=== PATIENT | female | born 1975 | race Caucasian/White ===

== ENCOUNTER → 2020-06-19 | Outpatient (CLI) | payer MEDICAID | END | disposition home or self-care (01) | LOC: CFH 12:24 | PROVIDERS: ATTEND Family Medicine | DX: R92.8 Other abnormal and inconclusive findings on diagnostic imaging of breast (principal) | CPT/HCPCS: 77065; G0279 ==

== ENCOUNTER → 2021-01-06 | Outpatient (CLI) | payer MEDICAID ==
[~2021-01-06] MED LIST: CYCL5TAB PO; DICL100G29 TD; HYDR25TA6 PO; MELO7.5T31 PO; POTA10TA31 PO
[2021-01-06 09:08] LABS: BASOPHILS % (AUTO) 1 % (0-1); EOSINOPHILS % (AUTO) 2 % (1-7); LYMPHOCYTES % (AUTO) 23 % (22-44); MEAN CORPUSCULAR HGB CONC 33.4 g/dL (32.4-35.8); MEAN PLATELET VOLUME 9.2 fL (7.4-10.4); MONOCYTES % (AUTO) 6 % (2-9); NEUTROPHILS % (AUTO) 69 % (42-75); PLATELET COUNT 337 x10^3/uL (130-400); RED BLOOD COUNT 4.98 x10^6/uL (3.82-5.3)
[2021-01-06 09:09] LABS: MD NO
[2021-01-06 09:18] LABS: CHLORIDE 98 mmol/L (98-107)
[2021-01-06 09:26] LABS: ALANINE AMINOTRANSFERASE 29 U/L (12-78); ALBUMIN 3.7 g/dL (3.4-5.0); ALKALINE PHOSPHATASE 80 U/L (45-117); ANION GAP 3 mmol/L (5-15); BILIRUBIN,TOTAL 0.4 mg/dL (0.2-1.0); CALCIUM 8.9 mg/dL (8.5-10.1); CREATININE 0.75 mg/dL (0.55-1.02); TOTAL PROTEIN 8.3 g/dL (6.4-8.2)
[2021-01-06 09:29] LABS: HCT (SEDRATE) 43.5 % (34.6-47.8)
[2021-01-06 09:45] LABS: INTERNATIONAL NORMALIZED RATIO 0.93 (0.93-1.1)
== END | disposition home or self-care (01) ==
LOC: STAR 07:33
PROVIDERS: ATTEND Orthopaedic Surgery Orthopaedic Surgery of the Spine
DX: Z01.812 Encounter for preprocedural laboratory examination (principal); Z20.822 Contact with and (suspected) exposure to COVID-19; M16.12 Unilateral primary osteoarthritis, left hip
CPT/HCPCS: 36415; 71046; 80053; 83036; 85025; 85610; 85651; 85730; 87081; 93005; U0003; U0005

== ENCOUNTER 2021-01-09 09:49 | Outpatient (CLI) | payer MEDICAID | END 2021-01-09 23:59 | disposition home or self-care (01) | LOC: STAR 09:49 | PROVIDERS: ATTEND Orthopaedic Surgery Orthopaedic Surgery of the Spine | DX: Z02.9 Encounter for administrative examinations, unspecified (principal) ==

== ENCOUNTER 2021-01-10 12:31 | Inpatient (IN) | payer MEDICAID ==
[2021-01-09 10:30] LABS: ANION GAP 5 mmol/L (5-15); CALCIUM 8.8 mg/dL (8.5-10.1); CHLORIDE 102 mmol/L (98-107); CREATININE 0.66 mg/dL (0.55-1.02)
[~2021-01-10] VITALS: Ht 167.6 cm; Wt 102.7 kg
[2021-01-10] MEDS ORDERED: LACTATED RINGERS 1,000 ML IV SCH (13:00)
[2021-01-10] MEDS ORDERED: VANCOMYCIN 2,000 MG in SODIUM CHLORIDE 0.9% 500 ML IV ONE (13:00)
[2021-01-10] MEDS ORDERED: CHLORHEXIDINE 15 ML UDC PO ONE (13:00)
[2021-01-10 13:10] LABS: HCG UR SG 1.028 (1.003-1.030)
[2021-01-10] MEDS ORDERED: VANCOMYCIN PMX 1GM/200ML 200 ML IV ONE (13:30)
[2021-01-10] MEDS ORDERED: VANCOMYCIN 1,000 MG in SODIUM CHLORIDE 0.9% 250 ML IV ONE (13:30)
[2021-01-10] MEDS ORDERED: HALOPERIDOL 5 MG/ML IV PRN (15:00)
[2021-01-10] MEDS ORDERED: hydrALAzine 20 MG/ML, 1ML IV PRN (15:00)
[2021-01-10] MEDS ORDERED: DIPHENHYDRAMINE 50 MG/ML, 1ML IVPush PRN ×2 (15:00→18:30)
[2021-01-10] MEDS ORDERED: MEPERIDINE/PF 25MG/0.5ML IVPush PRN (15:00)
[2021-01-10] MEDS ORDERED: LABETALOL 5MG/ML, 20ML IV PRN (15:00)
[2021-01-10] MEDS ORDERED: PROMETHAZINE 25 MG/ML, 1ML IVPush PRN (15:00)
[2021-01-10] MEDS ORDERED: ACETAMINOPHEN 325 MG TABLET PO PRN (15:00)
[2021-01-10] MEDS ORDERED: OXYcodone 5 MG/5 ML ORAL.SOL UDC PO PRN (15:00)
[2021-01-10] MEDS ORDERED: MIDAZOLAM 1 MG/ML, 2ML ONE (15:01)
[2021-01-10] MEDS ORDERED: FENTANYL PF 250 MCG/5ML ONE ×2 (15:02→16:57)
[2021-01-10] MEDS ORDERED: TRANEXAMIC ACID 100 MG/ML, 10ML ONE ×2 (15:33)
[2021-01-10] MEDS ORDERED: EPINEPHRINE 1 MG/ML, 1ML ONE (15:33)
[2021-01-10] MEDS ORDERED: VANCOMYCIN 1,000 MG ONE (15:33)
[2021-01-10] MEDS ORDERED: BUPIVACAINE/PF 0.5% ONE (15:33)
[2021-01-10] MEDS ORDERED: GLYCOPYRROLATE 0.2MG/1ML, 5ML ONE (17:49)
[2021-01-10] MEDS ORDERED: ONDANSETRON 2MG/ML, 2ML ONE (17:49)
[2021-01-10] MEDS ORDERED: ROCURONIUM 10MG/ML,5ML ONE (17:49)
[2021-01-10] MEDS ORDERED: NEOSTIGMINE 1 MG/ML, 10ML ONE (17:49)
[2021-01-10] MEDS ORDERED: SUCCINYLCHOLINE 20 MG/ML, 10ML ONE (17:49)
[2021-01-10] MEDS ORDERED: DEXAMETHASONE 4 MG/ML, 1ML ONE (17:49)
[2021-01-10] MEDS ORDERED: CEFAZOLIN 1,000 MG ONE (17:49)
[2021-01-10] MEDS ORDERED: PROPOFOL 10 MG/ML, 20ML ONE (17:49)
[2021-01-10] MEDS ORDERED: OXYcodone 5 MG/5 ML ORAL.SOL UDC ONE (18:27)
[2021-01-10] MEDS ORDERED: FENTANYL PF 100 MCG/2ML ONE (18:27)
[2021-01-10] MEDS ORDERED: PROMETHAZINE 25 MG/ML, 1ML IM PRN (18:30)
[2021-01-10] MEDS ORDERED: SENNA/DOCUSATE TABLET PO PRN (18:30)
[2021-01-10] MEDS ORDERED: DIAZEPAM 5 MG TABLET PO PRN (18:30)
[2021-01-10] MEDS ORDERED: LORazepam 1MG TABLET PO PRN (18:30)
[2021-01-10] MEDS ORDERED: DEXAMETHASONE 4 MG/ML, 5ML IVPush PRN (18:30)
[2021-01-10] MEDS ORDERED: METHOCARBAMOL 1,000 MG in DEXTROSE 5% 100 ML IV ONE (18:30)
[2021-01-10] MEDS ORDERED: SODIUM CHLORIDE 0.9% 1,000 ML IV PRN (18:30)
[2021-01-10] MEDS ORDERED: ONDANSETRON 2MG/ML, 2ML IV PRN (18:30)
[2021-01-10] MEDS ORDERED: KETOROLAC 30 MG/1 ML IVPush ONE (18:30)
[2021-01-10] MEDS ORDERED: BISACODYL 10 MG SUPP PR PRN (18:30)
[2021-01-10] MEDS ORDERED: HYDROcodone/APAP 5/325 TABLET PO PRN (18:30)
[2021-01-10] MEDS ORDERED: DIPHENHYDRAMINE 50 MG CAPSULE PO PRN (18:30)
[2021-01-10] MEDS ORDERED: DIPHENHYDRAMINE 50 MG/ML, 1ML IM PRN (18:30)
[2021-01-10] MEDS ORDERED: KETOROLAC 30 MG/1 ML IVPush PRN (18:30)
[2021-01-10] MEDS ORDERED: HYDROmorphone 2MG TABLET PO PRN (18:30)
[2021-01-10] MEDS: METHOCARBAMOL 1,000 MG in DEXTROSE 5% 100 ML IV SCH (18:30)
[2021-01-10] MEDS ORDERED: OXYcodone IR 5MG TABLET PO PRN (18:30)
[2021-01-10] MEDS ORDERED: MAGNESIUM HYDROXIDE 8%, 30ML UDC PO PRN (18:30)
[2021-01-10] MEDS ORDERED: TRANEXAMIC ACID 100 MG/ML, 10ML TP ONE (18:30)
[2021-01-10] MEDS ORDERED: LABETALOL 5MG/ML, 20ML IVPush PRN (18:30)
[2021-01-10] MEDS: FENTANYL PF 100 MCG/2ML IV PRN ×2 (18:30→18:38)
[2021-01-10] MEDS ORDERED: HYDROmorphone 1 MG/ML, 1ML INJ ONE ×2 (18:45→19:26)
[2021-01-10] MEDS: HYDROmorphone 1 MG/ML, 1ML INJ IVPush PRN ×4 (18:51→19:40)
[2021-01-10] MEDS ORDERED: TRANEXAMIC ACID 1,000 MG in SODIUM CHLORIDE 0.9% 100 ML IVPB ONE (20:00)
[2021-01-10 20:50] VITALS: BP 113/77
[2021-01-10] MEDS ORDERED: ZOLPIDEM 5MG TABLET PO PRN (21:00)
[2021-01-10] MEDS: ASPIRIN 325 MG TABLET PO SCH (23:19)
[2021-01-10] MEDS: ACETAMINOPHEN 500 MG TABLET PO PRN (23:20)
[2021-01-11 00:06] VITALS: BP 105/63
[2021-01-11] MEDS: NS + 20MEQ KCL 1,000 ML IV SCH ×2 (00:11→10:30)
[2021-01-11] MEDS: CEFAZOLIN PMX 1GM/50ML 50 ML IVPB SCH ×2 (01:09→08:49)
[2021-01-11] MEDS: morphine SULFATE 10 MG/ML, 1ML IVPush PRN ×3 (01:25→17:00)
[2021-01-11] MEDS: OXYcodone IR 5MG TABLET PO PRN ×3 (02:43→08:50)
[2021-01-11] MEDS: METHOCARBAMOL 1,000 MG in DEXTROSE 5% 100 ML IV SCH ×2 (02:52→10:59)
[2021-01-11 04:49] VITALS: BP 126/84
[2021-01-11] MEDS: ACETAMINOPHEN 500 MG TABLET PO PRN (05:54)
[2021-01-11 07:06] VITALS: BP 99/61
[2021-01-11] MEDS: ASPIRIN 325 MG TABLET PO SCH (08:50)
[2021-01-11] MEDS ORDERED: POTASSIUM CHLORIDE 10 MEQ TABLET.ER PO SCH (09:00)
[2021-01-11] MEDS ORDERED: HYDROCHLOROTHIAZIDE 25 MG TABLET PO SCH (09:00)
[2021-01-11 14:59] VITALS: BP 112/75
[2021-01-11] MEDS ORDERED: DICLOFENAC SODIUM 75 MG TABLET.DR PO SCH (17:00)
[2021-01-11] MEDS ORDERED: OXYC10TA6 PO (17:53)
[2021-01-11] MEDS ORDERED: CEPH750C9 PO (17:55)
[2021-01-11] MEDS ORDERED: ASPI-1026 PO (17:57)
[2021-01-11] MEDS ORDERED: METH-640 PO (17:58)
[2021-01-12] MEDS ORDERED: METHOCARBAMOL 750 MG TABLET PO SCH (18:30)
== END 2021-01-11 16:51 | disposition home or self-care (01) | DRG 301 ==
LOC: OUT 12:31 → ORIP 18:16 → 4NE 20:59
PROVIDERS: ADMIT Orthopaedic Surgery Orthopaedic Surgery of the Spine; ATTEND Orthopaedic Surgery Orthopaedic Surgery of the Spine
PROC: 0SRB04A Replacement of Left Hip Joint with Ceramic on Polyethylene Synthetic Substitute, Uncemented, Open Approach (ICD-10-PCS; principal; 2021-01-10 15:00)
DX: M16.12 Unilateral primary osteoarthritis, left hip (principal); E87.6 Hypokalemia; Z88.8 Allergy status to other drugs, medicaments and biological substances
CPT/HCPCS: 36415; 72170; 80048; 81025; 85014; 86850; 86900; G0378; J0171; J0690; J1100; J1170; J1885; J2250; J2405; J2704; J2710; J3010; J3370; J3480; C1776; J0330; J2270; J2800; J7050; J7120

== ENCOUNTER 2021-01-17 02:17 | Inpatient (IN) | payer MEDICAID ==
[~2021-01-17] VITALS: Ht 167.6 cm; Wt 96.2 kg
[~2021-01-17 02:17] MED LIST changes: +ASPI-1026 PO; +CEPH750C9 PO; +METH-640 PO; +OXYC10TA6 PO
--- NOTE | 2021-01-17 02:28 | NUR ---
INITIAL PT CONTACT. PT PRESENTS TO ED WITH C/O BEING UNABLE TO URINATE SINCE SURGERY APPROX 6 DAYS AGO. PT ALSO REPORTS CONSTIPATION AND DRAINAGE FROM SURGICAL WOUND. PT ANXIOUS AND IN OBVIOUS DISCOMFORT UPON ARRIVAL TO ROOM. BLADDER SCAN COMPLETE, MULTIPLE READINGS OVER 999ML OF URINE. ERP AT BEDSIDE. NO ADDITIONAL NEEDS AT THIS TIME. CALL LIGHT AND PERSONAL BELONGINGS WITHIN REACH. SPOUSE AT BEDSIDE.
[2021-01-17] MEDS ORDERED: SODIUM CHLORIDE FLUSH 10ML SYR IVF ONE (03:00)
[2021-01-17] MEDS ORDERED: SODIUM CHLORIDE 0.9% 1,000ML IVBOLUS ONE (03:00)
[2021-01-17] MEDS ORDERED: ONDANSETRON 2MG/ML, 2ML IVPush ONE (03:00)
[2021-01-17] MEDS ORDERED: MORPHINE SULFATE 4 MG/ML, 1ML IVPush ONE (03:00)
--- NOTE | 2021-01-17 03:04 | NUR ---
BLADDER SCAN COMPLETE, MULTIPLE SCANS SHOWING GREATER THAN 999ML. BERTRAND INSERTED PER ERP ORDER. AREA CLEANSED PER POLICY. PT TOLERATED WELL.
--- NOTE | 2021-01-17 03:10 | NUR ---
PT TO IMAGING
[2021-01-17] MEDS ORDERED: ONDANSETRON 2MG/ML, 2ML ONE (03:47)
[2021-01-17] MEDS ORDERED: MORPHINE SULFATE 4 MG/ML, 1ML ONE (03:47)
[2021-01-17 03:55] LABS: MICROSCOPIC NOT IND
[2021-01-17] MEDS ORDERED: PROPOFOL 10 MG/ML, 20ML ONE (04:22)
[2021-01-17 04:24] LABS: BASOPHILS % (AUTO) 0 % (0-1); EOSINOPHILS % (AUTO) 1 % (1-7); LYMPHOCYTES % (AUTO) 7 % (22-44); MEAN CORPUSCULAR HEMOGLOBIN 29.1 pg (27.0-34.8); MEAN CORPUSCULAR HGB CONC 33.6 g/dL (32.4-35.8); MEAN PLATELET VOLUME 8.1 fL (7.4-10.4); MONOCYTES % (AUTO) 4 % (2-9); NEUTROPHILS % (AUTO) 88 % (42-75); PLATELET COUNT 341 x10^3/uL (130-400); RED BLOOD COUNT 3.51 x10^6/uL (3.82-5.3); RED CELL DISTRIBUTION WIDTH 15.1 % (9.6-15.2)
[2021-01-17] MEDS ORDERED: PROPOFOL 10 MG/ML, 20ML IVPush ONE (04:30)
[2021-01-17 04:31] LABS: ALBUMIN 2.9 g/dL (3.4-5.0); ANION GAP 7 mmol/L (5-15); CALCIUM 8.4 mg/dL (8.5-10.1); CHLORIDE 96 mmol/L (98-107); CREATININE 0.94 mg/dL (0.55-1.02)
[2021-01-17 04:34] LABS: MD NO
--- NOTE | 2021-01-17 04:46 | NUR ---
PROCEDURAL SEDATION PERFORMED FOR FECAL DISIMPACTION. EMERGENCY EQUIPMENT AT BEDSIDE. PT TOLERATED PROCEDURE WELL. THIS RN TO REMAIN AT BEDSIDE UNTIL PT RETURNS TO PRE PROCEDURE BASELINE SEE PAPER SEDATION CHARTING FOR INFO.
--- NOTE | 2021-01-17 04:49 | NUR ---
& PA AWARE CRITICAL K+2.4. PLAN TO ADMIT PT.
[2021-01-17] MEDS ORDERED: POTASSIUM CHLORIDE 40 MEQ in SODIUM CHLORIDE 0.9% 500 ML IV ONE (05:00)
--- NOTE | 2021-01-17 05:01 | NUR ---
PT RETURNED TO PRE-PROCEDURE BASELINE. PT REPORTS RELIEF OF DISCOMFORT FOLLOWING PROCEDURE. PT DENIES ANY ADDITIONAL NEEDS AT THIS TIME. CALL LIGHT AND BELONGINGS WITHIN REACH. REMAINS AT BEDSIDE
--- NOTE | 2021-01-17 05:13 | NUR ---
CT PENDING BETA.
--- NOTE | 2021-01-17 05:36 | NUR ---
SURGICAL WOUND DRESSING REPLACED PER PT REQUEST. PT TOELRATED WELL.
--- NOTE | 2021-01-17 06:01 | NUR ---
CT DELAY- NO BETA RESULT YET.
[2021-01-17] MEDS ORDERED: PHENAZOPYRIDINE 200 MG TABLET ONE (06:25)
[2021-01-17] MEDS ORDERED: PHENAZOPYRIDINE 200 MG TABLET PO ONE (06:30)
--- NOTE | 2021-01-17 06:35 | NUR ---
PT TO CT
[2021-01-17] MEDS ORDERED: OMNIPAQUE 350 MG/ML, 100ML BOTTLE ONE (06:56)
--- NOTE | 2021-01-17 06:58 | NUR ---
BEDSIDE REPORT TO CELIO WOODWARD
[2021-01-17] MEDS ORDERED: METRONIDAZOLE PMX 500MG/100ML 100 ML IV SCH (07:00)
[2021-01-17] MEDS: ENOXAPARIN 40 MG/0.4 ML SQ SCH (07:00)
[2021-01-17] MEDS ORDERED: ONDANSETRON 2MG/ML, 2ML IVPush PRN (07:00)
[2021-01-17] MEDS ORDERED: CEFTRIAXONE 2 GM in DEXTROSE 5% 50 ML IVPB SCH (07:00)
[2021-01-17] MEDS ORDERED: ENALAPRILAT 1.25 MG/ML, 2ML IVPush PRN (07:00)
[2021-01-17] MEDS ORDERED: LABETALOL 5MG/ML, 20ML IVPush PRN (07:00)
[2021-01-17] MEDS ORDERED: ACETAMINOPHEN 325 MG TABLET PO PRN (07:00)
--- NOTE | 2021-01-17 07:01 | NUR ---
ASSUMING CARE AFTER BEDSIDE REPORT FROM NESSA WOODWARD. PT RESTING IN BED AFTER CT. GENESIS. KRISTY. AND LAB AT BEDSIDE. ANTIBIOTICS TO BE STARTED AFTER 2ND BLOOD CULTURE DRAW.
[2021-01-17] MEDS ORDERED: ENOXAPARIN 40 MG/0.4 ML ONE (07:13)
[2021-01-17] MEDS ORDERED: BISACODYL 10 MG SUPP ONE (07:13)
[2021-01-17] MEDS ORDERED: METRONIDAZOLE PMX 500MG/100ML 100 ML ONE (07:42)
[2021-01-17] MEDS: SODIUM CHLORIDE 0.9% 1,000 ML IV SCH ×3 (07:50→23:16)
--- NOTE | 2021-01-17 08:33 | NUR ---
PT WITH LARGE BM. PT CLEANED AND BEDDING CHANGED. 2000 CC URINE DRAINED FROM BERTRAND. VSS. NADN. AT BEDSIDE. AWAITING ADMIT UPSTAIRS.
[2021-01-17] MEDS ORDERED: BISACODYL 10 MG SUPP PR SCH (09:00)
--- NOTE | 2021-01-17 09:33 | NUR ---
report called to alec miller. pt ready to transer to floor.
[2021-01-17 10:16] VITALS: BP 96/65
[2021-01-17 13:07] VITALS: BP 96/63
[2021-01-17] MEDS ORDERED: MELO5CAP3 PO (13:31)
[2021-01-17] MEDS: morphine SULFATE 10 MG/ML, 1ML IVPush PRN ×3 (14:31→23:16)
[2021-01-17] MEDS: METRONIDAZOLE PMX 500MG/100ML 100 ML IV SCH ×2 (16:14→23:16)
[2021-01-17] MEDS ORDERED: CEPH500T PO (18:15)
[2021-01-17] MEDS ORDERED: POTA10CA PO (18:25)
[2021-01-17] MEDS ORDERED: MELO7.5T31 PO (18:25)
[2021-01-17] MEDS ORDERED: DIPH25TA65 PO (18:25)
[2021-01-17] MEDS ORDERED: OMEP20CA20 PO (18:25)
[2021-01-17] MEDS ORDERED: DICL100G29 TP (18:25)
[2021-01-17 19:08] VITALS: BP 101/66
[2021-01-18 00:22] VITALS: BP 97/60
[2021-01-18 05:28] LABS: BASOPHILS % (AUTO) 0 % (0-1); EOSINOPHILS % (AUTO) 2 % (1-7); LYMPHOCYTES % (AUTO) 10 % (22-44); MEAN CORPUSCULAR HGB CONC 33.2 g/dL (32.4-35.8); MONOCYTES % (AUTO) 6 % (2-9); NEUTROPHILS % (AUTO) 83 % (42-75); PLATELET COUNT 297 x10^3/uL (130-400); RED BLOOD COUNT 3.14 x10^6/uL (3.82-5.3); RED CELL DISTRIBUTION WIDTH 15.3 % (9.6-15.2)
[2021-01-18 05:29] LABS: ALANINE AMINOTRANSFERASE 23 U/L (12-78); ALBUMIN 2.5 g/dL (3.4-5.0); ANION GAP 4 mmol/L (5-15); CALCIUM 7.6 mg/dL (8.5-10.1); CHLORIDE 108 mmol/L (98-107); CREATININE 0.47 mg/dL (0.55-1.02); MD NO
[2021-01-18 05:32] LABS: ALKALINE PHOSPHATASE 69 U/L (45-117); BILIRUBIN,TOTAL 0.5 mg/dL (0.2-1.0); TOTAL PROTEIN 6.1 g/dL (6.4-8.2)
[2021-01-18] MEDS: CEFTRIAXONE 2 GM in DEXTROSE 5% 50 ML IVPB SCH (06:38)
[2021-01-18] MEDS: ENOXAPARIN 40 MG/0.4 ML SQ SCH (06:39)
[2021-01-18] MEDS: SODIUM CHLORIDE 0.9% 1,000 ML IV SCH ×2 (06:39→15:54)
[2021-01-18 06:48] VITALS: BP 116/77
[2021-01-18] MEDS: POTASSIUM CHLORIDE 20 MEQ TAB.ER.PRT PO SCH ×3 (09:11→18:40)
[2021-01-18] MEDS: POTASSIUM ACID PHOSPHATE 500 MG TABLET.SOL PO SCH ×3 (09:11→20:17)
[2021-01-18] MEDS: METRONIDAZOLE PMX 500MG/100ML 100 ML IV SCH ×2 (09:11→18:40)
[2021-01-18 13:36] VITALS: BP 132/84
[2021-01-18] MEDS: morphine SULFATE 10 MG/ML, 1ML IVPush PRN ×2 (14:45→20:17)
[2021-01-18 19:56] VITALS: BP 148/89
[2021-01-19] MEDS: morphine SULFATE 10 MG/ML, 1ML IVPush PRN ×2 (01:35→08:17)
[2021-01-19 01:43] VITALS: BP 126/77
[2021-01-19] MEDS: POTASSIUM ACID PHOSPHATE 500 MG TABLET.SOL PO SCH ×4 (02:27→20:45)
[2021-01-19] MEDS: SODIUM CHLORIDE 0.9% 1,000 ML IV SCH ×3 (02:28→17:40)
[2021-01-19] MEDS: METRONIDAZOLE PMX 500MG/100ML 100 ML IV SCH ×3 (02:28→18:14)
[2021-01-19 05:37] LABS: BASOPHILS % (AUTO) 1 % (0-1); EOSINOPHILS % (AUTO) 2 % (1-7); LYMPHOCYTES % (AUTO) 15 % (22-44); MEAN CORPUSCULAR HEMOGLOBIN 29.2 pg (27.0-34.8); MEAN CORPUSCULAR HGB CONC 32.8 g/dL (32.4-35.8); MEAN PLATELET VOLUME 7.8 fL (7.4-10.4); MONOCYTES % (AUTO) 7 % (2-9); NEUTROPHILS % (AUTO) 76 % (42-75); PLATELET COUNT 321 x10^3/uL (130-400); RED BLOOD COUNT 3.08 x10^6/uL (3.82-5.3); RED CELL DISTRIBUTION WIDTH 15.2 % (9.6-15.2)
[2021-01-19 05:41] LABS: MD NO
[2021-01-19 05:48] LABS: ANION GAP 4 mmol/L (5-15); CALCIUM 7.4 mg/dL (8.5-10.1); CHLORIDE 108 mmol/L (98-107)
[2021-01-19] MEDS: ENOXAPARIN 40 MG/0.4 ML SQ SCH (07:00)
[2021-01-19 07:16] VITALS: BP 125/81
[2021-01-19] MEDS ORDERED: POTASSIUM ACID PHOSPHATE 500 MG TABLET.SOL ONE (08:01)
[2021-01-19] MEDS: LISINOPRIL 5 MG TABLET PO SCH ×2 (08:18→20:45)
[2021-01-19] MEDS: POTASSIUM CHLORIDE 20 MEQ TAB.ER.PRT PO SCH ×3 (08:18→18:14)
[2021-01-19] MEDS: CEFTRIAXONE 2 GM in DEXTROSE 5% 50 ML IVPB SCH (08:19)
[2021-01-19 13:26] VITALS: BP 107/64
[2021-01-19 20:42] VITALS: BP 130/87
[2021-01-20] MEDS: SODIUM CHLORIDE 0.9% 1,000 ML IV SCH ×3 (00:20→11:02)
[2021-01-20 00:55] VITALS: BP 131/84
[2021-01-20] MEDS: METRONIDAZOLE PMX 500MG/100ML 100 ML IV SCH ×2 (03:21→10:59)
[2021-01-20] MEDS: POTASSIUM ACID PHOSPHATE 500 MG TABLET.SOL PO SCH (03:21)
[2021-01-20 05:17] LABS: BASOPHILS % (AUTO) 1 % (0-1); EOSINOPHILS % (AUTO) 2 % (1-7); LYMPHOCYTES % (AUTO) 17 % (22-44); MEAN CORPUSCULAR HEMOGLOBIN 29.4 pg (27.0-34.8); MEAN CORPUSCULAR HGB CONC 34.1 g/dL (32.4-35.8); MEAN PLATELET VOLUME 7.9 fL (7.4-10.4); MONOCYTES % (AUTO) 7 % (2-9); NEUTROPHILS % (AUTO) 74 % (42-75); PLATELET COUNT 387 x10^3/uL (130-400); RED BLOOD COUNT 3.42 x10^6/uL (3.82-5.3); RED CELL DISTRIBUTION WIDTH 14.9 % (9.6-15.2)
[2021-01-20 05:18] LABS: MD NO
[2021-01-20 05:31] LABS: ANION GAP 6 mmol/L (5-15); CALCIUM 8.6 mg/dL (8.5-10.1); CHLORIDE 107 mmol/L (98-107)
[2021-01-20 05:32] LABS: CREATININE 0.55 mg/dL (0.55-1.02)
[2021-01-20] MEDS: ENOXAPARIN 40 MG/0.4 ML SQ SCH (07:00)
[2021-01-20] MEDS: LISINOPRIL 5 MG TABLET PO SCH (07:12)
[2021-01-20] MEDS: CEFTRIAXONE 2 GM in DEXTROSE 5% 50 ML IVPB SCH (07:12)
[2021-01-20] MEDS: POTASSIUM CHLORIDE 20 MEQ TAB.ER.PRT PO SCH (07:12)
[2021-01-20 07:30] VITALS: BP 134/84
[2021-01-20 13:28] VITALS: BP 121/81
[2021-01-20] MEDS ORDERED: METR500T PO (15:05)
[2021-01-20] MEDS ORDERED: LACT1TAB13 PO (15:05)
[2021-01-20] MEDS ORDERED: LISI5TAB7 PO (15:05)
[2021-01-20] MEDS ORDERED: CEFD300C37 PO (15:05)
[2021-01-20] MEDS ORDERED: metroNIDAZOLE 500 MG TABLET PO SCH (16:40)
== END 2021-01-20 17:57 | disposition home or self-care (01) | DRG 720 ==
LOC: ED 02:47 → SUATTDRO 06:39 → EDIP 06:41 → 4WST 10:03
PROVIDERS: ADMIT Internal Medicine; ATTEND Internal Medicine
DX: A41.9 Sepsis, unspecified organism (principal); E83.39 Other disorders of phosphorus metabolism; K56.41 Fecal impaction; E87.1 Hypo-osmolality and hyponatremia; E88.09 Other disorders of plasma-protein metabolism, not elsewhere classified; E87.6 Hypokalemia; R33.9 Retention of urine, unspecified; K52.9 Noninfective gastroenteritis and colitis, unspecified; Z96.642 Presence of left artificial hip joint; D63.8 Anemia in other chronic diseases classified elsewhere; I10 Essential (primary) hypertension; Z79.899 Other long term (current) drug therapy; Z79.82 Long term (current) use of aspirin; Z88.4 Allergy status to anesthetic agent; Z91.040 Latex allergy status
CPT/HCPCS: 36415; 74022; 74177; 80048; 80053; 81003; 82040; 83605; 83735; 84100; 84145; 84703; 85025; 87040; 96361; 96374; 96375; 99285; G0378; J0696; J1650; J2405; J3480; Q9967; J2270; J7030; J7040